=== PATIENT | female | born 1950 | race Caucasian/White ===

== ENCOUNTER → 2022-01-26 | Outpatient (CLI) | payer MEDICARE, OTHER, SELFPAY ==
[2022-01-26 12:55] LABS: Erythrocyte Sedimentation Rate 21 mm/hr (0-30)
[2022-01-26 13:29] LABS: CRP 7.16 mg/L (0.0-3.0)
[2022-01-27 16:09] LABS: Endomysial Antibody IgA Negative (Negative)
[2022-01-28 11:37] LABS: Immunoglobulin A 185 mg/dL (64-422); t-Transglutaminase IgA <2 U/mL (0-3)
== END | disposition home or self-care (01) ==
PROVIDERS: PCP Family Medicine; Referring Provider Internal Medicine Gastroenterology; Visit Provider Internal Medicine Gastroenterology
DX: R10.9 Unspecified abdominal pain (principal); R19.7 Diarrhea, unspecified
CPT/HCPCS: 36415; 82784; 83516; 85652; 86140; 86255